=== PATIENT | female | born 1995 | race African-American/Black ===

== ENCOUNTER 2017-12-04 14:50 | Outpatient (CLI) | END 2017-12-04 16:30 | disposition home or self-care (01) ==

== ENCOUNTER 2017-12-07 22:00 | Inpatient (IN) | END 2017-12-08 07:15 | disposition home or self-care (01) | DRG 781 ==

== ENCOUNTER 2017-12-11 16:35 | Outpatient (CLI) | END 2017-12-11 17:50 | disposition home or self-care (01) ==

== ENCOUNTER 2017-12-13 12:56 | Outpatient (CLI) | END 2017-12-13 14:10 | disposition home or self-care (01) ==

== ENCOUNTER 2017-12-16 15:42 | Outpatient (CLI) | END 2017-12-16 17:19 | disposition home or self-care (01) ==

== ENCOUNTER 2017-12-18 17:15 | Outpatient (CLI) | END 2017-12-18 19:50 | disposition home or self-care (01) ==

== ENCOUNTER 2017-12-20 15:14 | Outpatient (CLI) | END 2017-12-20 18:50 | disposition home or self-care (01) ==

== ENCOUNTER 2017-12-21 15:51 | Outpatient (CLI) | END 2017-12-21 18:20 | disposition home or self-care (01) ==

== ENCOUNTER 2017-12-24 17:30 | Inpatient (IN) | END 2017-12-26 16:48 | disposition home or self-care (01) | DRG 781 ==

== ENCOUNTER 2017-12-28 21:08 | Inpatient (IN) | END 2018-01-04 13:22 | disposition home or self-care (01) | DRG 781 ==

== ENCOUNTER 2018-01-15 16:38 | Outpatient (CLI) | END 2018-01-15 18:15 | disposition home or self-care (01) ==

== ENCOUNTER 2019-01-10 13:07 | Emergency (ER) | payer MEDICAID ==
[~2019-01-10] VITALS: Ht 162.6 cm; Wt 52.7 kg
[~2019-01-10 13:07] MED LIST: PNV11TAB PO
[2019-01-10 13:25] VITALS: Ht 162.6 cm; Wt 52.7 kg
[2019-01-10] MEDS ORDERED: CEPH-443 PO (16:10)
[2019-01-10] MEDS ORDERED: SULF1TAB31 PO (16:10)
[2019-01-10] MEDS ORDERED: IBUP-1542 PO (16:11)
--- NOTE | 2019-01-10 16:18 | ERD ---
ER Documentation Chief Complaint Chief Complaint abcess on vaginal area x 2 days HPI 23-year-old female patient with no significant past medical history presents to ED complaining of having an abscess to her left labia area that started about 2 days ago. Patient reports that she does not want to have an incision and drainage. Denies any nausea, vomiting, abdominal pain, chest pain, shortness of breath, vaginal bleeding or vaginal discharge. States that her last menstrual was a few weeks ago. Reports that when she also is having sexual intercourse, she feels a bump near her cervix. Reports that she would like a speculum exam. ROS All systems reviewed and are negative except as per history of present illness. Medications Home Meds Active Scripts Ibuprofen* (Motrin*) 600 Mg Tab, 600 MG PO Q6, #30 TAB Prov:TIMBO MEZA-C 01/10/19 Sulfamethoxazole/Trimethoprim* (Bactrim Ds* Tablet) 1 Each Tablet, 1 TAB PO BID, #14 TAB Prov:TIMBO MEZA-C 01/10/19 Cephalexin* (Keflex*) 500 Mg Capsule, 500 MG PO QID for 7 Days, CAP Prov:TIMBO MEZA-C 01/10/19 Reported Medications [id number] ( 19) 1 Each Tablet, 1 TAB PO DAILY, TAB 12/04/17 Allergies Allergies: Coded Allergies: No Known Allergy (Unverified , 12/20/17) PMhx/Soc History of Surgery: Yes () Anesthesia Reaction: No Hx Neurological Disorder: No Hx Respiratory Disorders: No Hx Cardiac Disorders: No Hx Psychiatric Problems: No Hx Miscellaneous Medical Probl: No Hx Alcohol Use: Yes (Socially) Hx Substance Use: Yes (Marijuana) Hx Tobacco Use: No Smoking Status: Never smoker FmHx Family History: No diabetes, No coronary disease Physical Exam Vitals Vital Signs Date Temp Pulse Resp B/P (MAP) Pulse Ox O2 O2 Flow FiO2 Time Delivery Rate 01/10/19 98.6 87 18 125/67 99 13:25 (86) Physical Exam Const: Ypp-hzk-hnoczagpy, well-nourished. In no acute distress. Head: Atraumatic, normocephalic Eyes: Normal Conjunctiva without injection. No purulent discharge. ENT: Normal external ear, nose. Moist oropharynx without tonsillar exudates. Non-erythematous pharynx. Uvula midline. No drooling. No trismus. Neck: No cervical midline tenderness. Full range of motion. No meningismus. No cervical lymphadenopathy. No JVD. Resp: Clear to auscultation bilaterally. No wheezing, rhonchi, rales, or crackles. No accessory muscle use. No retractions. Cardio: Regular rate and rhythm. No murmurs, rubs or gallops. Abd: Soft, nontender, non distended. Normal bowel sounds. No palpable masses. No rebound tenderness. No guarding. Negative McBurney's point. Negative psoas sign. Negative obturator sign. : MDM for pelvic exam Skin: No petechiae or rashes Back: No midline tenderness. No CVA tenderness. Ext: No cyanosis, or edema. Neur: Awake and alert. Normal gait. Normal coordination. Psych: Normal Mood and Affect Results 24 hrs Laboratory Tests Test 01/10/19 15:12 POC Beta HCG, Qualitative NEGATIVE Procedures/MDM 23-year-old female patient with no significant past medical history presents ED complaining of an abscess on her left labia. Patient is afebrile and nontoxic- appearing. Urine negative. 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 Inflamed left Bartholin cyst noted. Speculum: Normal vaginal mucosa, normal cervical discharge Bimanual: No adnexal masses or tenderness, No CMT Patient was noted to have an inflamed left Bartholin cyst however no fluctuance was noted. No induration. Patient states that she would like to to try a trial of antibiotics. States that she would not like an incision and drainage. Reports that she will follow-up with her AUTOMOTIVE GENERATOR REPAIRER. Low suspicion for ectopic , ovarian torsion, gastritis, GERD, peptic ulcer disease, cholecystitis, choledocholithiasis, cholangitis, pancreatitis, appendicitis, bowel obstruction, ileus, volvulus, nephrolithiasis, pyelonephritis, hepatitis, perforated viscus, diverticulitis, strangulated/incarcerated hernia, DKA, acute abdomen, mesenteric ischemia or other emergent conditions. Diagnosis: Bartholin's gland abscess Discharge medications: Ibuprofen, Bactrim, Keflex Follow up with primary care physician in 1-2 days. Sitz baths/warm presses recommended. Instructed patient to return to the ED sooner for any worsening symptoms. Patient's questions were answered. Patient is hemodynamically stable. Patient understood and agreed with discharge plan. Patient discharged stable. Disclaimer: Inadvertent spelling and grammatical errors are likely due to EHR/dictation software use and do not reflect on the overall quality of patient care. Also, please note that the electronic time recorded on this note does not necessarily reflect the actual time of the patient encounter. Departure Diagnosis: Primary Impression: Bartholin's gland abscess Condition: Stable Patient Instructions: Bartholin's Cyst (No Infection) Referrals: [facility] (PCP) [facility] YOU HAVE RECEIVED A MEDICAL SCREENING EXAM AND THE RESULTS INDICATE THAT YOU DO NOT HAVE A CONDITION THAT REQUIRES URGENT TREATMENT IN THE EMERGENCY DEPARTMENT. FURTHER EVALUATION AND TREATMENT OF YOUR CONDITION CAN WAIT UNTIL YOU ARE SEEN IN YOUR DOCTORS OFFICE WITHIN THE NEXT 1-2 DAYS. IT IS YOUR RESPONSIBILITY TO MAKE AN APPOINTMENT FOR FOLOW-UP CARE. IF YOU HAVE A PRIMARY DOCTOR --you should call your primary doctor and schedule an appointment IF YOU DO NOT HAVE A PRIMARY DOCTOR YOU CAN CALL OUR PHYSICIAN REFERRAL HOTLINE AT IF YOU CAN NOT AFFORD TO SEE A PHYSICIAN YOU CAN CHOSE FROM THE FOLLOWING [facility] CLINICS [facility] [address] [facility]. [facility] 75[address] [facility]. [facility] [address] [facility]. [facility] [address]01 [facility]. [facility]. 1600 [facility]. [facility] YOU HAVE RECEIVED A MEDICAL SCREENING EXAM AND THE RESULTS INDICATE THAT YOU DO NOT HAVE A CONDITION THAT REQUIRES URGENT TREATMENT IN THE EMERGENCY DEPARTMENT. FURTHER EVALUATION AND TREATMENT OF YOUR CONDITION CAN WAIT UNTIL YOU ARE SEEN IN YOUR DOCTORS OFFICE WITHIN THE NEXT 1-2 DAYS. IT IS YOUR RESPONSIBILITY TO MAKE AN APPOINTMENT FOR FOLOW-UP CARE. IF YOU HAVE A PRIMARY DOCTOR --you should call your primary doctor and schedule and appointment IF YOU DO NOT HAVE A PRIMARY DOCTOR YOU CAN CALL OUR PHYSICIAN REFERRAL HOTLINE AT . IF YOU CAN NOT AFFORD TO SEE A PHYSICIAN YOU CAN CHOSE FROM THE FOLLOWING [facility] INSTITUTIONS: [facility] [address] [place] [address] [facility] [address] [place] [address] [facility] + [facility] [address] [place] [address] [facility]ENT [facility]/SPECIALTIES AUTOMOTIVE GENERATOR REPA[place] [address] [facility] [address] [place] [address] OFFICE FAX , [facility] [address] [place], [place] [phone] [facility] [address] [place] [address] [address] [facility] [facility] [address] [facility], [facility] [address] [address] [address] [place] [address] [facility] [address] [place] [address] [facility] [address] - SIMONE POSADA [address], [facility] [address] JERMAIN DAWSON [address] [facility]. [address], [facility] [address] LIS[address]TE [address] [address] [place], [place] [phone] [facility] Hours: 8:00 am - 5:00 pm Additional Instructions: Call your primary care doctor TOMORROW for an appointment during the next 2-3 days for a referral to see an AUTOMOTIVE GENERATOR REPAIRER.See the doctor sooner or return here if your condition worsens before your appointment time. TIMBO MEZA PA-C January 10, 2019 16:18
== END 2019-01-10 16:11 | disposition home or self-care (01) ==
LOC: FTE 13:07
DX: N75.1 Abscess of Bartholin's gland (principal)
CPT/HCPCS: 81025; Z7502; 99284

== ENCOUNTER 2019-01-31 20:25 | Emergency (ER) | payer SELFPAY ==
[~2019-01-31] VITALS: Ht 160 cm; Wt 50.9 kg
[~2019-01-31 20:25] MED LIST changes: +CEPH-443 PO; +IBUP-1542 PO; +SULF1TAB31 PO
[2019-01-31 20:34] VITALS: BP 129/71; PULSE 80; RESP 18; Ht 160 cm; Wt 50.9 kg
== END 2019-01-31 22:42 | disposition left against medical advice (07) ==
LOC: FTE 20:25
DX: Z53.21 Procedure and treatment not carried out due to patient leaving prior to being seen by health care provider (principal)

== ENCOUNTER 2019-02-02 16:53 | Emergency (ER) | payer MEDICAID ==
[~2019-02-02] VITALS: Ht 160 cm; Wt 51.2 kg
[2019-02-02 17:10] VITALS: Ht 160 cm; Wt 51.2 kg
[2019-02-02] MEDS ORDERED: METOCLOPRAMIDE 10 MG INJ IV STA (17:37)
[2019-02-02] MEDS ORDERED: SOD CHLORIDE 0.9% 1,000 ML IV STA (17:37)
--- NOTE | 2019-02-02 17:42 | ERD ---
ER Documentation Chief Complaint Chief Complaint vomitting x 4 days - LMP 12/27/18 HPI 23-year-old female, with EGA 6 weeks by LMP 12/26/2018, presents the emergency department, complaining of 4 days with persistent nausea and vomiting associated with inability to tolerate solids. The patient denies vaginal bleeding, no abdominal pain. The patient established care with Dr. Wilson at [facility] ROS All systems reviewed and are negative except as per history of present illness. Medications Home Meds Active Scripts Doxylamine/Pyridoxine Hcl (VALENTIN CELESTE 10-10 MG TABLET) 1 Each Tablet.dr, 1 TAB PO QHS for 30 Days, #30 TAB Prov:DOMI BHATTI MD 02/02/19 Cephalexin* (Keflex*) 500 Mg Capsule, 500 MG PO QID for 7 Days, CAP Prov:DOMI BHATTI MD 02/02/19 Ibuprofen* (Motrin*) 600 Mg Tab, 600 MG PO Q6, #30 TAB Prov:TIMBO MEZA PA-C 01/10/19 Sulfamethoxazole/Trimethoprim* (Bactrim Ds* Tablet) 1 Each Tablet, 1 TAB PO BID, #14 TAB Prov:TIMBO MEZA PA-C 01/10/19 Cephalexin* (Keflex*) 500 Mg Capsule, 500 MG PO QID for 7 Days, CAP Prov:TIMBO MEZA-C 01/10/19 Reported Medications [id number] ( 19) 1 Each Tablet, 1 TAB PO DAILY, TAB 12/04/17 Allergies Allergies: Coded Allergies: No Known Allergy (Unverified , 12/20/17) PMhx/Soc History of Surgery: Yes () Anesthesia Reaction: No Hx Neurological Disorder: No Hx Respiratory Disorders: No Hx Cardiac Disorders: No Hx Psychiatric Problems: No Hx Miscellaneous Medical Probl: No Hx Alcohol Use: Yes (Socially) Hx Substance Use: Yes (Marijuana) Hx Tobacco Use: No Physical Exam Vitals Vital Signs Date Temp Pulse Resp B/P (MAP) Pulse Ox O2 O2 Flow FiO2 Time Delivery Rate 02/02/19 99.1 70 18 126/66 98 17:10 (86) Physical Exam Const: No acute distress Head: Atraumatic Eyes: Normal Conjunctiva ENT: Normal External Ears, Nose and Mouth. Neck: Full range of motion. No meningismus. Resp: Clear to auscultation bilaterally Cardio: Regular rate and rhythm, no murmurs Abd: Soft, non tender, non distended. Normal bowel sounds Skin: No petechiae or rashes Back: No midline or flank tenderness Ext: No cyanosis, or edema Neur: Awake and alert Psych: Normal Mood and Affect Result Diagram: 02/02/19 1812 02/02/19 1800 Results 24 hrs Laboratory Tests Test 02/02/19 18:00 02/02/19 18:12 Urine Color YELLOW Urine Clarity SLIGHTLY CLOUDY Urine pH 5.0 Urine Specific Alpha 1.031 Urine Ketones 2+ mg/dL Urine Nitrite NEGATIVE mg/dL Urine Bilirubin NEGATIVE mg/dL Urine Urobilinogen 1+ mg/dL Urine Leukocyte Esterase 1+ Marcelina/ul Urine Microscopic RBC 2 /HPF Urine Microscopic WBC 18 /HPF Urine Squamous Epithelial Cells FEW /HPF Urine Mucus MANY /HPF Urine Hemoglobin NEGATIVE mg/dL Urine Glucose NEGATIVE mg/dL Urine Total Protein 1+ mg/dl Sodium Level 145 mmol/L Potassium Level 4.0 mmol/L Chloride Level 111 mmol/L Carbon Dioxide Level 19 mmol/L Anion Gap 15 Blood Urea Nitrogen 10 mg/dl Creatinine 0.63 mg/dl Est Glomerular Filtrat Rate mL/min > 60 mL/min Glucose Level 81 mg/dl Calcium Level 9.1 mg/dl Total Bilirubin 0.7 mg/dl Direct Bilirubin 0.00 mg/dl Indirect Bilirubin 0.7 mg/dl Aspartate Amino Transf (AST/SGOT) 35 IU/L Alanine Aminotransferase (ALT/SGPT) 11 IU/L Alkaline Phosphatase 63 IU/L Total Protein 8.0 g/dl Albumin 4.4 g/dl Globulin 3.60 g/dl Albumin/Globulin Ratio 1.22 Lipase 37 U/L White Blood Count 8.1 10^3/ul Red Blood Count 4.11 10^6/ul Hemoglobin 11.7 g/dl Hematocrit 35.2 % Mean Corpuscular Volume 85.6 fl Mean Corpuscular Hemoglobin 28.5 pg Mean Corpuscular Hemoglobin Concent 33.2 g/dl Red Cell Distribution Width 13.7 % Platelet Count 153 10^3/UL Mean Platelet Volume 11.9 fl Immature Granulocytes % 0.200 % Neutrophils % 62.3 % Lymphocytes % 29.8 % Monocytes % 6.3 % Eosinophils % 1.0 % Basophils % 0.4 % Nucleated Red Blood Cells % 0.0 /100WBC Immature Granulocytes # 0.020 10^3/ul Neutrophils # 5.1 10^3/ul Lymphocytes # 2.4 10^3/ul Monocytes # 0.5 10^3/ul Eosinophils # 0.1 10^3/ul Basophils # 0.0 10^3/ul Nucleated Red Blood Cells # 0.0 10^3/ul Beta HCG, Quantitative 33384.0 mIU/ml Current Medications Medications Dose Sig/Delano Start Time Status Last (Trade) Ordered Route PRN Stop Time Admin Dose Reason Admin Sodium 1,000 ml @ Q1H STAT 02/02/19 DC 02/02/19 Chloride 1,000 mls/hr IV 17:37 17:49 02/02/19 18:36 10 mg ONCE STAT 02/02/19 DC 02/02/19 Metoclopramid IV 17:37 17:49 e HCl 02/02/19 17:42 (Reglan) Ceftriaxone 50 ml @ ONCE ONCE 02/02/19 02/02/19 Sodium 100 mls/hr IVPB 20:00 19:41 02/02/19 20:29 Procedures/MDM Vital signs stable, Physical exam unremarkable. Differential diagnosis include but not limited to: Gastroenteritis, appendicitis, dehydration, hyperemesis gravidarum, UTI, anemia. Physical examination and clinical presentation most likely consistent with hyperemesis gravidarum and urinary tract infection . During the ED course the patient remained hemodynamically stable and asymptomatic, she received IV hydration and Reglan. with marked improvement of the symptoms. Results and clinical impression discussed with patient who agrees with manageme nt. The patient is stable to be treated outpatient and will be discharged home with close monitoring and follow-up in 2 days with her primary physician. The patient was instructed regarding the outcomes and the potential complications like severe bleeding and . If the patient presents severe bleeding or pain, she was instructed to return to the hospital immediately. Disclaimer: Inadvertent spelling and grammatical errors are likely due to EHR/dictation software use and do not reflect on the overall quality of patient care. Also, please note that the electronic time recorded on this note does not necessarily reflect the actual time of the patient encounter. Departure Diagnosis: Primary Impression: Hyperemesis affecting , antepartum Additional Impression: Urinary tract infection Condition: Stable Patient Instructions: Understanding Urinary Tract Infections (UTIs) Additional Instructions: Thank you very much for allowing us to participate in your care. Your health and safety is our top priority at [facility]. The evaluation in the emergency department has been done to rule out an acute emergency. Chronic, oiq-gigi-qoixpwsngub conditions may have not been evaluated; therefore, you need to follow up with a primary care provider in the next 48h. If symptoms persist, worsen or new symptoms develop, then patient should return to the ED immediately. Call your primary care doctor TOMORROW for an appointment during the next 2-4 days and bring all the information provided. Have prescriptions filled and follow precisely the directions on the label. If the symptoms get worse and your provider is unavailable, return to the Emergency Department immediately. DOMI BHATTI MD Feb 02, 2019 17:41
[2019-02-02] MEDS ORDERED: CEPH-443 PO (19:39)
[2019-02-02] MEDS ORDERED: DOXY1TAB3 PO (19:39)
[2019-02-02] MEDS ORDERED: CEFTRIAXONE 1 GM/50 ML (PMX) 50 ML IVPB ONE (20:00)
[2019-02-02 20:21] VITALS: BP 97/56; PULSE 61; RESP 18
== END 2019-02-02 20:24 | disposition home or self-care (01) ==
LOC: FTE 16:53
DX: O21.0 Mild hyperemesis gravidarum (principal); O23.41 Unspecified infection of urinary tract in pregnancy, first trimester; Z3A.01 Less than 8 weeks gestation of pregnancy
CPT/HCPCS: 36415; 76801; 76817; 80053; 81001; 83690; 84702; 85025; 87086; 96361; 96365; 96375; J0696; J2765; J7030; Z7502

== ENCOUNTER 2019-02-22 21:59 | Emergency (ER) | payer MEDICAID ==
[~2019-02-22] VITALS: Ht 160 cm; Wt 50.9 kg
[~2019-02-22 21:59] MED LIST changes: +DOXY1TAB3 PO
[2019-02-22 22:01] VITALS: Ht 160 cm; Wt 50.9 kg
[2019-02-22] MEDS ORDERED: CLIN300C10 PO (23:20)
[2019-02-22] MEDS ORDERED: ACET500C5 PO (23:20)
--- NOTE | 2019-02-22 23:22 | ERD ---
ER Documentation Chief Complaint Chief Complaint bartholin's cyst x2 days, hx of same in the past HPI Patient is a 23-year-old female, presents the ER for concerns of left- sided Bartholin gland x2 days. Patient has a history of recurrent Bartholin cyst. Patient states she went to the clinic today to start taking an pill however she vomited 10 minutes after taking it. Patient does not know name of pill. Patient was advised to return to the clinic tomorrow for a second pill. Patient states she is not sure if she is going to keep this or not. Patient denies any fevers or chills. Patient denies any nausea, vomiting, dysuria, frequency, urgency or hematuria. Patient states her SHOWROOM CONSULTANT is at [facility]. Patient states she has been taking ibuprofen for her pain. ROS All systems reviewed and are negative except as per history of present illness. Medications Home Meds Active Scripts Metoclopramide* (Reglan*) 10 Mg Tablet, 10 MG PO Q6 PRN for NAUSEA AND/OR VOMITING, #10 TAB Prov:DAVE BARNES PA-C 02/22/19 Acetaminophen* (Tylophen*) 500 Mg Capsule, 1 CAP PO Q6H PRN for PAIN AND OR ELEVATED TEMP, #20 CAP Prov:DAVE BARNES PA-C 02/22/19 Clindamycin Hcl* (Clindamycin Hcl*) 300 Mg Capsule, 300 MG PO TID for 7 Days, CAP Prov:DAVE BARNES PA-C 02/22/19 Doxylamine/Pyridoxine Hcl (VALENTIN CELESTE 10-10 MG TABLET) 1 Each Tablet., 1 TAB PO QHS for 30 Days, #30 TAB Prov:DOMI BHATTI MD 02/02/19 Cephalexin* (Keflex*) 500 Mg Capsule, 500 MG PO QID for 7 Days, CAP Prov:DOMI BHATTI MD 02/02/19 Ibuprofen* (Motrin*) 600 Mg Tab, 600 MG PO Q6, #30 TAB Prov:TIMBO MEZA PA-C 01/10/19 Sulfamethoxazole/Trimethoprim* (Bactrim Ds* Tablet) 1 Each Tablet, 1 TAB PO BID, #14 TAB Prov:TIMBO MEZA PA-C 5/20/19 Cephalexin* (Keflex*) 500 Mg Capsule, 500 MG PO QID for 7 Days, CAP Prov:SUSANATIMBO Kwame HANCOCK 01/10/19 Reported Medications [id number] ( 19) 1 Each Tablet, 1 TAB PO DAILY, TAB 12/04/17 Allergies Allergies: Coded Allergies: No Known Allergy (Unverified , 12/20/17) PMhx/Soc History of Surgery: Yes () Anesthesia Reaction: No Hx Neurological Disorder: No Hx Respiratory Disorders: No Hx Cardiac Disorders: No Hx Psychiatric Problems: No Hx Miscellaneous Medical Probl: No Hx Alcohol Use: Yes (Socially) Hx Substance Use: Yes (Marijuana) Hx Tobacco Use: No Smoking Status: Never smoker FmHx Family History: No diabetes Physical Exam Vitals Vital Signs Date Temp Pulse Resp B/P (MAP) Pulse Ox O2 O2 Flow FiO2 Time Delivery Rate 02/22/19 99.4 90 16 98/63 (75) 100 22:01 Physical Exam GENERAL: Well-developed, well-nourished female. Appears in no acute distress. Speaking in full sentences. HEAD: Normocephalic, atraumatic. EYES: Pupils are equally reactive bilaterally. EOMs grossly intact. No conjunctival erythema. NECK: Supple. No meningismus. Normal range of motion of the neck. LUNG: Clear to auscultation bilaterally. No rhonchi, wheezing, rales or coarse breath sounds. HEART: Regular rate and rhythm. No murmurs, rubs or gallops. BOARDING SPECIALIST: Left-sided Bartholin gland abscess noted. Affected area is tender to touch. EXTREMITIES: Equal pulses bilaterally. No peripheral clubbing, cyanosis or edema. No unilateral leg swelling. NEUROLOGIC: Alert and oriented. Moving all four extremities without any difficulty. Normal speech. Steady gait. SKIN: Normal color. Warm and dry. No rashes or lesions. Procedures/MDM MEDICAL DECISION MAKING: Patient is a 23-year-old female presents ER for concerns of left-sided Bartholin gland cyst x 2 days. Vital signs were reviewed. Patient is afebrile. Patient was not hypoxic. Patient was hemodynamically stable. On exam, patient was noted to have a left-sided Bartholin gland cyst versus abscess. Patient states that she is she is not sure if she is going to keep her current or not. Patient denied any vaginal bleeding. Patient was advised she will need to follow-up with an SHOWROOM CONSULTANT for incision and drainage. Patient will be started on clindamycin. Patient was advised this medication is safe during . Patient was also advised to take Tylenol. Patient advised not to take ibuprofen as is not advised during . Low suspicion for deep space infection, sepsis. PRESCRIPTION: Tylenol, Reglan, clindamycin DISCHARGE: At this time, patient is stable for discharge and outpatient management. I have instructed the patient to follow-up with his/her primary care physician in 1-2 days. I have discussed with the patient the possibility of needing to see a specialist for further workup and imaging studies if symptoms persist. I have instructed the patient to promptly return to the ER for any new or worsening symptoms including increased pain, fever, nausea, vomiting, weakness or LOC. The patient and/or family expressed understanding of and agreement with this plan. All questions were answered. Home care instructions were provided. Disclaimer: Inadvertent spelling and grammatical errors are likely due to EHR/dictation software use and do not reflect on the overall quality of patient care. Also, please note that the electronic time recorded on this note does not necessarily reflect the actual time of the patient encounter. Departure Diagnosis: Primary Impression: Bartholin cyst Additional Impression: Weeks of gestation: unspecified Qualified Codes: Z34.90 - Encounter for supervision of normal , unspecified, unspecified trimester Condition: Fair Patient Instructions: Bartholin's Cyst (I And D) Referrals: [facility] YOU HAVE RECEIVED A MEDICAL SCREENING EXAM AND THE RESULTS INDICATE THAT YOU DO NOT HAVE A CONDITION THAT REQUIRES URGENT TREATMENT IN THE EMERGENCY DEPARTMENT. FURTHER EVALUATION AND TREATMENT OF YOUR CONDITION CAN WAIT UNTIL YOU ARE SEEN IN YOUR DOCTORS OFFICE WITHIN THE NEXT 1-2 DAYS. IT IS YOUR RESPONSIBILITY TO MAKE AN APPOINTMENT FOR FOLOW-UP CARE. IF YOU HAVE A PRIMARY DOCTOR --you should call your primary doctor and schedule an appointment IF YOU DO NOT HAVE A PRIMARY DOCTOR YOU CAN CALL OUR PHYSICIAN REFERRAL HOTLINE AT IF YOU CAN NOT AFFORD TO SEE A PHYSICIAN YOU CAN CHOSE FROM THE FOLLOWING [facility] [address] [facility]. [facility] [address] [facility]. [facility] [address] [facility] [address] [facility]. [facility] [address] [facility]. [facility]. [address] [facility]. [facility] YOU HAVE RECEIVED A MEDICAL SCREENING EXAM AND THE RESULTS INDICATE THAT YOU DO NOT HAVE A CONDITION THAT REQUIRES URGENT TREATMENT IN THE EMERGENCY DEPARTMENT. FURTHER EVALUATION AND TREATMENT OF YOUR CONDITION CAN WAIT UNTIL YOU ARE SEEN IN YOUR DOCTORS OFFICE WITHIN THE NEXT 1-2 DAYS. IT IS YOUR RESPONSIBILITY TO MAKE AN APPOINTMENT FOR FOLOW-UP CARE. IF YOU HAVE A PRIMARY DOCTOR --you should call your primary doctor and schedule and appointment IF YOU DO NOT HAVE A PRIMARY DOCTOR YOU CAN CALL OUR PHYSICIAN REFERRAL HOTLINE AT . IF YOU CAN NOT AFFORD TO SEE A PHYSICIAN YOU CAN CHOSE FROM THE FOLLOWING [facility] INSTITUTIONS: [facility] [address] [place] [address] [facility] [address] [place] [address] [facility] + [facility] [address] [place] [address] SHOWROOM CONS[place] [address] [facility] [address] [place], [place] [phone] OFFICE FAX ANNELISE PRICENICA [address] [place], [place] [id number] [address] [place] [place] [address] [place], [place] [phone] [address] [address] [facility], [address] [address] LIZZETTE MENDOZA [address] [place], [place] [phone] [facility] [address] [place], [place] [id number] [address] [facility] [id number] - DR RODRIGUEZ, SIMONE [address], [facility] [phone] MULLINS, JERMAIN [address] [facility]. [address], [facility] [address] [address] SLAU[address]TER, [facility] [address] [place] [address] Additional Instructions: Follow-up with SHOWROOM CONSULTANT for incision and drainage. Call your primary care doctor TOMORROW for an appointment during the next 1-2 days.See the doctor sooner or return here if your condition worsens before your appointment time. DAVE BARNES PA-C Feb 22, 2019 23:22
[2019-02-22] MEDS ORDERED: METO10TA92 PO (23:23)
== END 2019-02-22 23:27 | disposition home or self-care (01) ==
LOC: FTE 21:59
DX: O34.60 Maternal care for abnormality of vagina, unspecified trimester (principal); N75.0 Cyst of Bartholin's gland; Z3A.00 Weeks of gestation of pregnancy not specified
CPT/HCPCS: 99283

== ENCOUNTER 2019-02-23 10:44 | Emergency (ER) | payer MEDICAID ==
[~2019-02-23] VITALS: Wt 50.2 kg
[~2019-02-23 10:44] MED LIST changes: +ACET500C5 PO; +CLIN300C10 PO; +METO10TA92 PO
[2019-02-23] MEDS ORDERED: LIDOCAINE 1% (MDV) 20 ML INJ SC ONE (12:30)
--- NOTE | 2019-02-24 19:00 | ERD ---
ER Documentation Chief Complaint Chief Complaint barthgregorio cyst, seen here last night for same, 9 wks preg HPI This is a 23-year-old G2, P1 female who presents to the ED with a tender and swollen mass to her vaginal area. Patient states her last mental cycle was December 22. Patient states she was 9 weeks and took an pill at her [facility] 2 days ago. Patient does not know the name of this pill. She states she took the pill "does not make me bleed". She does not know if she is still . She denies any vaginal bleeding or abdominal cramping. She is most bothered by the nodule/breathlessness that she has in her vaginal area. She states she had this with her first as well. No fevers, chills. No nausea vomiting. She was seen here yesterday for same and prescribed antibiotics which she has not been consistent with. ROS All systems reviewed and are negative except as per history of present illness. Medications Home Meds Active Scripts Metoclopramide* (Reglan*) 10 Mg Tablet, 10 MG PO Q6 PRN for NAUSEA AND/OR VOMITING, #10 TAB Prov:DAVE BARNES PA-C 02/22/19 Acetaminophen* (Tylophen*) 500 Mg Capsule, 1 CAP PO Q6H PRN for PAIN AND OR ELEVATED TEMP, #20 CAP Prov:DAVE BARNES PA-C 02/22/19 Clindamycin Hcl* (Clindamycin Hcl*) 300 Mg Capsule, 300 MG PO TID for 7 Days, CAP Prov:DAVE BARNES PA-C 02/22/19 Doxylamine/Pyridoxine Hcl (VALENTIN CELESTE 10-10 MG TABLET) 1 Each Tablet., 1 TAB PO QHS for 30 Days, #30 TAB Prov:DOMI BHATTI MD 02/02/19 Cephalexin* (Keflex*) 500 Mg Capsule, 500 MG PO QID for 7 Days, CAP Prov:DOMI BHATTI MD 02/02/19 Ibuprofen* (Motrin*) 600 Mg Tab, 600 MG PO Q6, #30 TAB Prov:TIMBO MEZA PA-C 01/10/19 Sulfamethoxazole/Trimethoprim* (Bactrim Ds* Tablet) 1 Each Tablet, 1 TAB PO BID, #14 TAB Prov:MEZATIMBO Puente PA-C 01/10/19 Cephalexin* (Keflex*) 500 Mg Capsule, 500 MG PO QID for 7 Days, CAP Prov:SUSANATIMBO Kwame HANCOCK 01/10/19 Reported Medications [id number] ( 19) 1 Each Tablet, 1 TAB PO DAILY, TAB 12/04/17 Allergies Allergies: Coded Allergies: No Known Allergy (Unverified , 12/20/17) PMhx/Soc History of Surgery: Yes () Anesthesia Reaction: No Hx Neurological Disorder: No Hx Respiratory Disorders: No Hx Cardiac Disorders: No Hx Psychiatric Problems: No Hx Miscellaneous Medical Probl: No Hx Alcohol Use: Yes (Socially) Hx Substance Use: Yes (Marijuana) Hx Tobacco Use: No Smoking Status: Never smoker FmHx Family History: No diabetes Physical Exam Vitals Vital Signs Date Temp Pulse Resp B/P (MAP) Pulse Ox O2 O2 Flow FiO2 Time Delivery Rate 02/23/19 99.3 102 20 133/82 100 10:55 (99) Physical Exam Const: No acute distress Head: Atraumatic Eyes: Normal Conjunctiva ENT: Normal External Ears, Nose and Mouth. Neck: Full range of motion. No meningismus. Abd: Soft, non tender, non distended. Normal bowel sounds Pelvic Exam: Abdomen: Nontender External Genitalia: + Tender and erythematous nodule at the left labia majora with fluctuance and induration. Skin: No petechiae or rashes Ext: No cyanosis, or edema Neur: Awake and alert Psych: Normal Mood and Affect Results 24 hrs Current Medications Medications Dose Sig/Delano Start Time Status Last (Trade) Ordered Route PRN Stop Time Admin Dose Reason Admin Lidocaine 20 ml ONCE ONCE 02/23/19 DC (Xylocaine SC 12:30 02/23/19 1% (Mdv) 20 12:31 ml) Procedures/MDM MEDICAL DECISION MAKING: This is a 23-year-old G2, P1 female with a Bartholin cyst. Patient took an pill 2 days ago does not know she is still . She is most concerned by her bartholin cyst. She was seen here yesterday for same complaints and started on clindamycin. Patient presents again today for continued pain. She has not been consistent with her antibiotics. I&D was attempted in clinic today however patient decided to defer the procedure to her [facility] whom she has an appointment with in a few days. I recommended she take the antibiotics, and do Epsom salt baths as well. She has no fever here, vital signs are normal. No evidence of deep space tissue infection. Patient stable for outpatient follow-up management. Strict return precautions were discussed. PRESCRIPTIONS: None, continue clindamycin SPECIALIST FOLLOW UP RECOMMENDED: [facility] Patient has been advised to follow up with primary care in 1-2 days. Departure Diagnosis: Primary Impression: Bartholin's gland abscess Condition: Stable Patient Instructions: Bartholin's Cyst (No Infection) Referrals: [facility] [place] [id number] [facility] [address] [place] [address] OFFICE FAX [facility] [address] [place] [address] [address] [place] [address] [place] [address] [address] [facility] [address] [facility], [address], [facility] [address] [address] [place] [address] [facility] [address] [place] [address] [facility] [address] - [address] [facility] [address] [address] [facility] [address] [facility]. [address], [facility] [address] [address] [address] [place], [place] [address] Additional Instructions: You must see the [facility] for treatment of your Bartholin cyst. Continue course o f antibiotics. Do Epsom salt baths for 10 minutes a day at least 4 times a day. Call your primary care doctor TOMORROW for an appointment during the next 2-4 days and bring all the information and medications prescribed. If the symptoms get worse and your provider is unavailable, return to the Emergency Department immediately. ALEXUS NUNEZ PA-C Feb 24, 2019 19:00
== END 2019-02-23 12:47 | disposition home or self-care (01) ==
LOC: FTE 10:44
DX: O34.81 Maternal care for other abnormalities of pelvic organs, first trimester (principal); N75.1 Abscess of Bartholin's gland; Z3A.09 9 weeks gestation of pregnancy
CPT/HCPCS: 99284